=== PATIENT | male | born 1980 | race Caucasian/White ===

== ENCOUNTER 2017-11-05 15:30 | Emergency (ER) | payer OTHER ==
[2017-11-05] MEDS ORDERED: ZOFRAN ODT 4 MG PO ONE (16:18)
[2017-11-05] MEDS ORDERED: Naprosyn 500 MG PO ONE (16:18)
--- NOTE | 2017-11-05 16:25 | ERPHSYRPT ---
- History of Present Illness Time Seen by Provider: 11/05/17 16:11 Source: patient, family Patient Subjective Stated Complaint: PT REPORTS GENERALIZED BODY ACHES, FEVER LAST NIGHT 101.8, CHILLS, COUGH, VOMITING FOR 3 DAYS. Triage Nursing Assessment: PT IS AOX3, PUPILS PERRL, RESPS EASY AND NON LABORED , LUNG SOUNDS CLEAR THROUGHOUT ALL CARMICHAEL, PT AFEBRILE, RADIAL PULSES STRONG AND EQUAL, SKIN FLUSHED, WARM AND DRY. 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 He has mylagias, nausea, come vomiting and diarrhea, cough at night, headache. No sore throat. He has fever and chills. Taking po at home. Used APAP. Allergic to asa but can take naproxen. Cough Quality/Degree: moderate Allergies/Adverse Reactions: venom-honey bee [bee venom (honey bee)] Allergy (Severe, Verified 11/05/17 15:46 ) Hives aspirin Adverse Reaction (Severe, Verified 11/05/17 15:46) Vomiting morphine Adverse Reaction (Severe, Verified 11/05/17 15:46) Vomiting Home Medications: Venlafaxine HCl [Effexor Xr] 75 mg PO DAILY 01/29/16 [History] Hx Tetanus, Diphtheria Vaccination/Date Given: Yes Hx Influenza Vaccination/Date Given: No Hx Pneumococcal Vaccination/Date Given: No Immunizations Up to Date: Yes - Review of Systems Constitutional: Fever, Chills, Malaise Eyes: No Symptoms Ears, Nose, & Throat: Nose Congestion, No Throat Pain Respiratory: Cough Abdominal/Gastrointestinal: Vomiting, Diarrhea Genitourinary Symptoms: No Dysuria Skin: No Rash Neurological: Headache All Other Systems: Reviewed and Negative - Past Medical History Pertinent Past Medical History: Yes Psycho-Social History: Anxiety, Depression - Past Surgical History Past Surgical History: Yes Gastrointestinal: Appendectomy - Social History Smoking Status: Current every day smoker How long have you smoked: 22 Exposure to second hand smoke: No Drug Use: none 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) - Nursing Vital Signs Nursing Vital Signs: Initial Vital Signs Temperature 98.6 F 11/05/17 15:39 Pulse Rate 78 11/05/17 15:39 Respiratory Rate 18 11/05/17 15:39 Blood Pressure 139/80 11/05/17 15:39 O2 Sat by Pulse Oximetry 98 11/05/17 15:39 Pain Scale Pain Intensity 8 - Physical Exam General Appearance: alert Eye Exam: PERRL/EOMI Ears, Nose, Throat Exam: normal ENT inspection, moist mucous membranes Neck Exam: normal inspection, non-tender, supple, No meningismus Respiratory Exam: normal breath sounds, lungs clear Cardiovascular Exam: regular rate/rhythm Gastrointestinal/Abdomen Exam: soft, No tenderness, No distention Male Genitalia Exam: normal genitalia Back Exam: normal inspection, normal range of motion, No CVA tenderness Extremity Exam: normal inspection, normal range of motion Neurologic Exam: alert, oriented x 3, cooperative, sensation nml, No motor deficits Skin Exam: warm, dry, No rash SpO2 Interpretation: normal SpO2: 98 Oxygen Delivery: Room Air - Course Nursing assessment & vital signs reviewed: Yes Ordered Tests: Medication Summary Discontinued Medications Generic Name Dose Route Start Last Admin Trade Name Freq PRN Reason Stop Dose Admin Naproxen 500 mg 11/05/17 16:18 Naprosyn 500 Mg PO 11/05/17 16:19 STAT ONE Ondansetron HCl 4 mg 11/05/17 16:18 Zofran Odt 4 Mg PO 11/05/17 16:19 STAT ONE - Progress Progress Note: 11/05/17 16:23 Flu symptoms longer than 3 days so tamiflu unlikely to benefit. Will use naproxen, alb MDI, zofran, push fluids. Work slip given. No clinical sign of pneumonia nor meningitis. Instr given. Counseled pt/family regarding: diagnosis, need for follow-up - Departure Time of Disposition: 16:24 Departure Disposition: Home Clinical Impression: Influenza-like syndrome Condition: Stable Critical Care Time: No Referrals: SHIRA HOPKINS VEHICLE RETURN ASSOCIATE [NON-STAFF PHY W/O PRIVILEGES] - Instructions: Cough -- Adult, Influenza -- Adult Additional Instructions: UPPER RESPIRATORY INFECTIONS 1. The signs and symptoms of a cold may last up to 10 days. These illnesses are due to viruses which are not treatable with antibiotics. 2. The following suggestions can aid in recovery and to minimize symptoms: A. Increase fluid intake. B. Acetaminophen or Naproxen as directed. C. Avoid smoking environments as this will increase the risk of developing pneumonia. D. For children, may use a cool mist vaporizer in the child's room. 3. Contact your Family Physician if you note: A. Persisten fever >103 for more than 3 days B. Breathing difficulty C. Productive cough of yellow/green sputum D. Illness greater than 7 days E. Persistent vomiting F. Stiff neck Rx zofran sent to [facility]. Rx albuterol MDI sent to [facility]. Push oral fluids. Off work until fever free for 24 hours. Return for problems or concerns. Prescriptions: Ondansetron ODT 4 MG [Zofran Odt 4 mg] 1 tab PO Q6H PRN PRN #10 tab.rapdis PRN Reason: Nausea/Vomiting Albuterol Sulfate [Albuterol Sulfate Hfa] 2 puff IH Q4-6HPRN PRN #1 [id number] PRN Reason: cough or wheeze
[2017-11-05] MEDS ORDERED: ZOFRAN ODT 4 MG ONE (16:28)
[2017-11-05 17:44] VITALS: BP 149/82; PULSE 73; O2SAT 97
== END 2017-11-05 17:44 | disposition home or self-care (01) ==
LOC: ED 15:30
DX: J11.1 Influenza due to unidentified influenza virus with other respiratory manifestations (principal); R51 Headache
CPT/HCPCS: 99284; Q0162; A9270-GY

== ENCOUNTER 2018-12-09 23:05 | Emergency (ER) | payer MEDICAID, OTHER ==
[2018-12-09 23:20] VITALS: BP 141/91; PULSE 76; O2SAT 97
--- NOTE | 2018-12-09 23:23 | ERPHSYRPT ---
- History of Present Illness Time Seen by Provider: 12/09/18 23:22 Source: patient Exam Limitations: no limitations Patient Subjective Stated Complaint: pt is alert and oriented. pt is ambulatory. pt comes in with c/o pain to his left shoulder. pt states he does not remember an injury and has never injured his shoulder. no obvious deformity. pt has full rom but prefers not to move it due to pain. no bruising or redness. no obvious trauma. Triage Nursing Assessment: see above Physician History: 38 y/o right handed white male presents with left shoulder pain. no specific injury. never had this before. no cp and no soa Occurred: this morning Method of Injury: unknown Quality: aching Severity of Pain-Max: moderate Severity of Pain-Current: moderate Extremities Pain Location: shoulder: left Modifying Factors: Improves With: movement Associated Symptoms: No chest discomfort, No dyspnea, No short of breath Allergies/Adverse Reactions: venom-honey bee [bee venom (honey bee)] Allergy (Severe, Verified 11/05/17 15:46 ) Hives aspirin Adverse Reaction (Severe, Verified 11/05/17 15:46) Vomiting morphine Adverse Reaction (Severe, Verified 11/05/17 15:46) Vomiting Home Medications: Venlafaxine HCl [Venlafaxine HCl ER] 75 mg PO DAILY 12/09/18 [History] Hx Tetanus, Diphtheria Vaccination/Date Given: Yes Hx Influenza Vaccination/Date Given: No Hx Pneumococcal Vaccination/Date Given: No Immunizations Up to Date: Yes - Review of Systems Constitutional: No Symptoms Eyes: No Symptoms Ears, Nose, & Throat: No Symptoms Respiratory: No Symptoms Cardiac: No Symptoms Abdominal/Gastrointestinal: No Symptoms Genitourinary Symptoms: No Symptoms Musculoskeletal: Joint Pain (left shoulder) Skin: No Symptoms Neurological: No Symptoms Psychological: No Symptoms Endocrine: No Symptoms Hematologic/Lymphatic: No Symptoms Immunological/Allergic: No Symptoms All Other Systems: Reviewed and Negative - Past Medical History Pertinent Past Medical History: Yes Neurological History: No Pertinent History ENT History: No Pertinent History Cardiac History: No Pertinent History Respiratory History: No Pertinent History Endocrine Medical History: No Pertinent History Musculoskeletal History: No Pertinent History GI Medical History: Other History: No Pertinent History Psycho-Social History: No Pertinent History Male Reproductive Disorders: No Pertinent History Other Medical History: appendix removal with sepsis and partial removal of bladder. 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 Vital Signs Nursing Vital Signs: Initial Vital Signs Pulse Rate 76 12/09/18 23:13 Respiratory Rate 18 12/09/18 23:13 Blood Pressure 141/91 12/09/18 23:13 O2 Sat by Pulse Oximetry 97 12/09/18 23:13 Pain Scale Pain Intensity 9 - Physical Exam General Appearance: no apparent distress, alert, anxiety Eyes, Ears, Nose, Throat Exam: normal ENT inspection, moist mucous membranes Neck Exam: normal inspection, non-tender, supple, full range of motion Cardiovascular/Respiratory Exam: chest non-tender, normal breath sounds, regular rate/rhythm, heart sounds normal Abdominal Exam: non-tender, soft Back Exam: normal inspection, normal range of motion, No CVA tenderness, No vertebral tenderness Shoulder Exam: normal inspection, no evidence of injury, normal ROM, soft tissue tenderness Elbow/Forearm Exam: normal inspection, non-tender, no evidence of injury, normal ROM Wrist Exam: normal inspection, non-tender, no evidence of injury, normal ROM Hand Exam: normal inspection, non-tender, no evidence of injury, normal ROM Neuro/Tendon Exam: normal sensation, normal motor functions Mental Status Exam: alert, oriented x 3, cooperative Skin Exam: normal color, warm, dry SpO2 Interpretation: normal SpO2: 97 O2 Delivery: Room Air - Course Nursing assessment & vital signs reviewed: Yes - Progress Progress: unchanged Progress Note: 12/09/18 23:36 i offered pt a xray left shoulder. pt does not feel one is necessary and therefore declines. Counseled pt/family regarding: diagnosis, need for follow-up, rad results - Departure Time of Disposition: 23:37 Departure Disposition: Home Clinical Impression: Left shoulder strain Condition: Stable Critical Care Time: No Referrals: SHIRA HOPKINS, [employer] [facility] [Primary Care Provider] - Additional Instructions: follow up with primary doctor next week for further management. Prescriptions: Cyclobenzaprine HCl 10 mg [Cyclobenzaprine 10 MG] 10 mg PO TID #10 tablet Prednisone 10 mg [Deltasone 10 mg] 10 mg PO TID #12 tablet
[2018-12-09] MEDS ORDERED: Cyclobenzaprine 10 MG PO ONE (23:48)
[2018-12-09] MEDS ORDERED: PERCOCET TABLET 5/325MG PO STA (23:49)
[2018-12-09] MEDS ORDERED: DELTASONE 10 MG PO ONE (23:49)
[2018-12-09] MEDS ORDERED: Cyclobenzaprine 10 MG ONE (23:58)
[2018-12-09] MEDS ORDERED: PERCOCET TABLET 5/325MG ONE (23:58)
[2018-12-09] MEDS ORDERED: DELTASONE 20 MG ONE (23:59)
== END 2018-12-10 00:02 | disposition home or self-care (01) ==
LOC: ED 23:05
DX: S46.912A Strain of unspecified muscle, fascia and tendon at shoulder and upper arm level, left arm, initial encounter (principal); M25.512 Pain in left shoulder
CPT/HCPCS: 99283; A9270-GY

== ENCOUNTER 2019-12-17 09:31 | Emergency (ER) | payer OTHER ==
[2019-12-17 09:52] VITALS: BP 130/80; PULSE 87; O2SAT 96
--- NOTE | 2019-12-17 10:40 | ERPHSYRPT ---
- History of Present Illness Time Seen by Provider: 12/17/19 09:50 Source: patient Exam Limitations: no limitations Patient Subjective Stated Complaint: "I was exposed to a TB patient in the ambulance". Triage Nursing Assessment: Pt presents to ER with crew from [facility] for exposure from TB patient. Pt is alert and oriented x 3. Asymptomatic at this time. Resp easy. Denies nausea/vomiting/diarrhea. Denies fever, body aches, chills, rash, ect. 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 Of shortness of breath cough or fevers. Timing/Duration: today Modifying Factors: Improves With: nothing Associated Symptoms: denies symptoms Allergies/Adverse Reactions: venom-honey bee [bee venom (honey bee)] Allergy (Severe, Verified 12/17/19 09:52 ) Hives aspirin Adverse Reaction (Severe, Verified 12/17/19 09:52) Vomiting morphine Adverse Reaction (Severe, Verified 12/17/19 09:52) Vomiting Home Medications: Venlafaxine HCl [Venlafaxine HCl ER] 75 mg PO DAILY 12/09/18 [History] Hx Tetanus, Diphtheria Vaccination/Date Given: Yes Hx Influenza Vaccination/Date Given: Yes Hx Pneumococcal Vaccination/Date Given: No Immunizations Up to Date: Yes - Review of Systems Constitutional: No Symptoms Eyes: No Symptoms Ears, Nose, & Throat: No Symptoms Respiratory: No Symptoms Cardiac: No Symptoms Abdominal/Gastrointestinal: No Symptoms Genitourinary Symptoms: No Symptoms Musculoskeletal: No Symptoms Skin: No Symptoms Neurological: No Symptoms Psychological: No Symptoms Endocrine: No Symptoms Hematologic/Lymphatic: No Symptoms Immunological/Allergic: No Symptoms All Other Systems: Reviewed and Negative - Past Medical History Pertinent Past Medical History: Yes Neurological History: No Pertinent History ENT History: No Pertinent History Cardiac History: High Cholesterol Respiratory History: No Pertinent History Endocrine Medical History: No Pertinent History Musculoskeletal History: No Pertinent History GI Medical History: Other History: No Pertinent History Psycho-Social History: No Pertinent History Male Reproductive Disorders: No Pertinent History Other Medical History: appendix removal with sepsis and partial removal of bladder. 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 - Social History Smoking Status: Current every day smoker How long have you smoked: 15 years Exposure to second hand smoke: No Drug Use: none Patient Lives Alone: Yes - Nursing Vital Signs Nursing Vital Signs: Initial Vital Signs Temperature 98.1 F 12/17/19 09:47 Pulse Rate 87 12/17/19 09:47 Respiratory Rate 18 12/17/19 09:47 Blood Pressure 130/80 12/17/19 09:47 O2 Sat by Pulse Oximetry 96 12/17/19 09:47 Pain Scale Pain Intensity 0 - Physical Exam General Appearance: no apparent distress, alert Eye Exam: PERRL/EOMI, eyes nml inspection Ears, Nose, Throat Exam: normal ENT inspection, moist mucous membranes Neck Exam: normal inspection, non-tender, supple, full range of motion Respiratory Exam: normal breath sounds, lungs clear, airway intact, No chest tenderness, No respiratory distress Rectal Exam: No not done Back Exam: normal inspection, normal range of motion, No CVA tenderness, No vertebral tenderness Extremity Exam: normal inspection, normal range of motion, pelvis stable Neurologic Exam: alert, oriented x 3, cooperative, 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 Flynn, the emergency room department physician at [facility], was contacted by me. I discussed the correction patient who presumed to have active TB. He evaluated that patient this morning and repeated the chest x-ray. He also found out that the patient had a negative PPD in the recent past. Dr. Flynn stated that he is confident that this patient does not have active TB. No further work-up for Manjinder Dominguez will be performed. Counseled pt/family regarding: diagnosis, need for follow-up - Departure Departure Disposition: Home Clinical Impression: Encounter for medical screening examination Condition: Stable Critical Care Time: No Referrals: CONNIE-ELIAN,SHIRA E., TOP AND TRIM WORKER [Primary Care Provider] - Additional Instructions: Follow-up with your primary care physician as needed
== END 2019-12-17 10:30 | disposition home or self-care (01) ==
LOC: ED 09:31
DX: Z03.89 Encounter for observation for other suspected diseases and conditions ruled out (principal)
CPT/HCPCS: 99283

== ENCOUNTER 2020-03-25 20:56 | Emergency (ER) | payer MEDICAID, OTHER ==
--- NOTE | 2020-03-25 21:15 | ERPHSYRPT ---
- History of Present Illness Time Seen by Provider: 03/25/20 21:10 Source: patient Exam Limitations: no limitations Physician History: This is a 39-year-old white male who presents with right cheek and right dental pain. Patient has chronic dental pain and chronic dental infection issues. Today, he accidentally was hit in the maxillary area on the right. This brought on significant dental pain. Patient originally had dental appointment at the end of December. However with the COVID-19 infection his appointment was canceled. He has not yet re-scheduled. Timing/Duration: abrupt onset Severity: moderate ENT Location: facial, dental Prearrival Treatment: over the counter meds (Plain Tylenol) Allergies/Adverse Reactions: venom-honey bee [bee venom (honey bee)] Allergy (Severe, Verified 03/25/20 21:01 ) Hives aspirin Adverse Reaction (Severe, Verified 03/25/20 21:01) Vomiting morphine Adverse Reaction (Severe, Verified 03/25/20 21:01) Vomiting Home Medications: Venlafaxine HCl [Venlafaxine HCl ER] 75 mg PO DAILY 12/09/18 [History] Hx Tetanus, Diphtheria Vaccination/Date Given: Yes Hx Influenza Vaccination/Date Given: Yes Hx Pneumococcal Vaccination/Date Given: No Travel Risk - International Travel Have you traveled outside of the country in past 3 weeks: No Have you or anyone close to you been diagnosed with or: No Do your reside in a community with a known COVID-19 case?: Yes If Yes where:: [facility] - Review of Systems Constitutional: No Symptoms Eyes: No Symptoms Ears, Nose, & Throat: Other (Right upper dental pain) Respiratory: No Symptoms Cardiac: No Symptoms Abdominal/Gastrointestinal: No Symptoms Genitourinary Symptoms: No Symptoms Musculoskeletal: No Symptoms Skin: No Symptoms Neurological: No Symptoms Psychological: No Symptoms Endocrine: No Symptoms Hematologic/Lymphatic: No Symptoms Immunological/Allergic: No Symptoms All Other Systems: Reviewed and Negative - Past Medical History Pertinent Past Medical History: Yes Neurological History: No Pertinent History ENT History: No Pertinent History Cardiac History: High Cholesterol Respiratory History: No Pertinent History Endocrine Medical History: No Pertinent History Musculoskeletal History: No Pertinent History GI Medical History: Other History: No Pertinent History Psycho-Social History: No Pertinent History Male Reproductive Disorders: No Pertinent History Other Medical History: appendix removal with sepsis and partial removal of bladder. 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 - Social History Smoking Status: Current every day smoker How long have you smoked: 15 years Exposure to second hand smoke: No Drug Use: none Patient Lives Alone: Yes - Nursing Vital Signs Nursing Vital Signs: Initial Vital Signs Temperature 98.3 F 03/25/20 21:02 Pulse Rate 96 H 03/25/20 21:02 Respiratory Rate 15 03/25/20 21:02 Blood Pressure 131/94 03/25/20 21:02 O2 Sat by Pulse Oximetry 97 03/25/20 21:02 Pain Scale Pain Intensity 10 - Physical Exam General Appearance: no apparent distress, alert, anxiety Eye Exam: bilateral eye: normal inspection, PERRL, EOMI Ear Exam: bilateral ear: auricle normal, canal normal, TM normal Nasal Exam: normal inspection Throat Exam: dental tenderness (Right upper molars, patient has generalized poor dentition) Neck Exam: normal inspection, non-tender, supple, full range of motion Cardiovascular/Respiratory Exam: chest non-tender Abdominal Exam: non-tender Neurologic Exam: alert, oriented x 3, cooperative, 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 Patient states he does have a ride home Counseled pt/family regarding: diagnosis, need for follow-up - Departure Departure Disposition: Home Clinical Impression: Pain, dental Condition: Stable Critical Care Time: No Referrals: SHIRA HOPKINS, [employer] DE[employer]ERIFF [Primary Care Provider] - Additional Instructions: Follow-up tomorrow with dentist to arrange an appointment for definitive care. Add ibuprofen 600 mg orally (if not allergic) with food 3 times a day Prescriptions: Hydrocodone/APAP 5-325 Tab^^^ [Ridgeway 5-325 Tablet^^^] 1 tab PO Q8H PRN PRN #6 tablet MDD 3 PRN Reason: Pain Cephalexin Mh 500 mg [Keflex 500 mg] 500 mg PO TID #21 capsule
[2020-03-25] MEDS ORDERED: Norco 10/325 MG Tablet PO ONE (21:43)
[2020-03-25] MEDS ORDERED: KEFLEX 250 MG PO ONE (21:44)
[2020-03-25] MEDS ORDERED: KEFLEX 250 MG ONE (22:17)
[2020-03-25] MEDS ORDERED: Norco 10/325 MG Tablet ONE (22:17)
[2020-03-25 22:26] VITALS: BP 126/85; PULSE 92; O2SAT 98
== END 2020-03-25 22:26 | disposition home or self-care (01) ==
LOC: ED 20:56
DX: K08.89 Other specified disorders of teeth and supporting structures (principal); W22.8XXA Striking against or struck by other objects, initial encounter; Y93.9 Activity, unspecified; Y92.9 Unspecified place or not applicable; G89.29 Other chronic pain; F45.42 Pain disorder with related psychological factors
CPT/HCPCS: 99283; A9270-GY

== ENCOUNTER 2020-10-22 21:17 | Emergency (ER) | payer SELFPAY ==
[2020-10-22] MEDS ORDERED: XYLOCAINE 1% HCL 20 ML MDV IJ ONE (21:18)
[2020-10-22 21:41] VITALS: O2SAT 98
[2020-10-22] MEDS ORDERED: Rocephin 1000 MG INJ ONE (21:47)
[2020-10-22] MEDS ORDERED: Rocephin 1000 MG INJ IM ONE (21:47)
--- NOTE | 2020-10-22 21:47 | ERPHSYRPT ---
- History of Present Illness Time Seen by Provider: 10/22/20 21:40 Source: patient Exam Limitations: no limitations Patient Subjective Stated Complaint: pt states that "I have had a toothache for the past 2 days." Triage Nursing Assessment: pt ambulated into the er; pt is axo x4; c/o toothache; states 10/pain to upper left mouth; multiple tooth decay present; upper gum is red and swollen; mucus membrane is pink and moist; lung sounds clear in all lobes; clear heart tones; vitals wnl Physician History: This is a 39-year-old white male who has generalized poor dentition who has 2- day history of tooth ache. It is specifically the left upper front tooth. Timing/Duration: gradual onset, days (2) Severity: moderate ENT Location: dental Prearrival Treatment: over the counter meds Associated Symptoms: tooth pain Allergies/Adverse Reactions: venom-honey bee [bee venom (honey bee)] Allergy (Severe, Verified 10/22/20 21:21) Hives aspirin Adverse Reaction (Severe, Verified 10/22/20 21:21) Vomiting morphine Adverse Reaction (Severe, Verified 10/22/20 21:21) Vomiting Hx Tetanus, Diphtheria Vaccination/Date Given: Yes Hx Influenza Vaccination/Date Given: No Hx Pneumococcal Vaccination/Date Given: No Travel Risk - International Travel Have you traveled outside of the country in past 3 weeks: No - Coronavirus Screening Are you exhibiting any of the following symptoms?: No Close contact with a COVID-19 positive Pt in past 14-21 Days: Yes - Review of Systems Constitutional: No Symptoms Eyes: No Symptoms Ears, Nose, & Throat: Other (Dental pain/infection) Respiratory: No Symptoms Cardiac: No Symptoms Abdominal/Gastrointestinal: No Symptoms Genitourinary Symptoms: No Symptoms Musculoskeletal: No Symptoms Skin: No Symptoms Neurological: No Symptoms Psychological: No Symptoms Endocrine: No Symptoms Hematologic/Lymphatic: No Symptoms Immunological/Allergic: No Symptoms All Other Systems: Reviewed and Negative - Past Medical History Pertinent Past Medical History: Yes Neurological History: No Pertinent History ENT History: No Pertinent History Cardiac History: High Cholesterol Respiratory History: No Pertinent History Endocrine Medical History: No Pertinent History Musculoskeletal History: No Pertinent History GI Medical History: Other History: No Pertinent History Psycho-Social History: No Pertinent History Male Reproductive Disorders: No Pertinent History Other Medical History: appendix removal with sepsis and partial removal of bladder. 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 - Social History Smoking Status: Current every day smoker How long have you smoked: 15 years Exposure to second hand smoke: No Drug Use: none Patient Lives Alone: Yes - Nursing Vital Signs Nursing Vital Signs: Initial Vital Signs Temperature 99.2 F 10/22/20 21:22 Pulse Rate 78 10/22/20 21:22 Respiratory Rate 16 10/22/20 21:22 Blood Pressure 130/87 10/22/20 21:22 O2 Sat by Pulse Oximetry 98 10/22/20 21:22 Pain Scale Pain Intensity 10 - Physical Exam General Appearance: no apparent distress, alert, anxiety Eye Exam: bilateral eye: normal inspection, PERRL, EOMI Ear Exam: bilateral ear: auricle normal Nasal Exam: normal inspection Throat Exam: dental tenderness Neck Exam: normal inspection, non-tender, supple, full range of motion, trachea midline Cardiovascular/Respiratory Exam: chest non-tender, no respiratory distress Abdominal Exam: non-tender Neurologic Exam: alert, oriented x 3, cooperative, 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, nor mal mood/affect, nml cerebellar function, nml station & gait, sensation nml Skin Exam: normal color, warm, dry SpO2 Interpretation: normal SpO2: 98 O2 Delivery: Room Air - Course Nursing assessment & vital signs reviewed: Yes Ordered Tests: Medication Summary Generic Name Dose Route Start Last Admin Trade Name Willianq PRN Reason Stop Dose Admin Ceftriaxone Sodium 1,000 mg 10/22/20 21:47 Rocephin 1000 Mg Inj IM 10/22/20 21:48 STAT ONE - Progress Progress: unchanged Counseled pt/family regarding: diagnosis, need for follow-up - Departure Departure Disposition: Home Clinical Impression: Pain, dental, Dental infection Condition: Stable Critical Care Time: Yes Referrals: SHIRA HOPKINS, EP TECH [Primary Care Provider] - Additional Instructions: Take medication as prescribed. Use Tylenol and ibuprofen for pain control. Follow-up with dentist for definitive care. Prescriptions: Cephalexin Mh 500 mg [Keflex 500 mg] 500 mg PO TID #21 capsule
[2020-10-22] MEDS ORDERED: Norco 10/325 MG Tablet PO ONE (21:54)
[2020-10-22] MEDS ORDERED: Norco 10/325 MG Tablet ONE (21:55)
[2020-10-22 22:11] VITALS: BP 117/84; PULSE 69
== END 2020-10-22 22:08 | disposition home or self-care (01) ==
LOC: ED 21:17
DX: K04.7 Periapical abscess without sinus (principal)
CPT/HCPCS: 96372; 99283; J0696; A9270-GY

== ENCOUNTER 2024-08-01 17:24 | Observation (INO) | payer BC ==
--- NOTE | 2024-08-01 17:35 | ERPHSYRPT ---
- History of Present Illness Time Seen by Provider: 08/01/24 17:35 Historian: patient, family Exam Limitations: no limitations Physician History: This is a 43-year-old white male patient who presents with bilateral lower quadrant infraumbilical abdominal pain with associated diarrhea but no nausea or vomiting symptoms. Patient has had an appendectomy in the past. He also has a history of hyperlipidemia. At approximately 8 AM this morning, the patient noticed the pain coming on it became quite severe. It was severe enough for him to take Tylenol and ibuprofen which did not relieve his symptoms. Throughout the day the pain worsened. The pain is now radiating into his back. Patient denies chest pain. Patient denies shortness of breath. Timing/Duration: today Quality: sharpness, stabbing Abdominal Pain Onset Location: RLQ, LLQ Pain Radiation: back Severity of Pain-Max: moderate Severity of Pain-Current: moderate Modifying Factors: Improves With: nothing Associated Symptoms: diarrhea Previous symptoms: no prior history Allergies/Adverse Reactions: venom-honey bee [bee venom (honey bee)] Allergy (Severe, Verified 08/01/24 17:40) Hives aspirin Adverse Reaction (Severe, Verified 08/01/24 17:40) Vomiting morphine Adverse Reaction (Severe, Verified 08/01/24 17:40) Vomiting Home Medications: Atorvastatin Calcium [Lipitor] 10 mg PO DAILY 08/01/24 [History] Fenofibrate,Micronized 145 mg* [Tricor 145 MG] 145 mg PO DAILY 08/01/24 [History] Venlafaxine HCl ER 75 mg [Effexor XR 75 MG] 75 mg PO DAILY 08/01/24 [History] icosapent ethyL [Vascepa] 1 gm PO BID 08/01/24 [History] Hx Tetanus, Diphtheria Vaccination/Date Given: Yes Hx Influenza Vaccination/Date Given: No Hx Pneumococcal Vaccination/Date Given: No Travel Risk - International Travel Have you traveled outside of the country in past 3 weeks: No - Emerging Infectious Disease Are you exhibiting symptoms associated with any current EIDs: No - Review of Systems Constitutional: No Symptoms Eyes: No Symptoms Ears, Nose, & Throat: No Symptoms Respiratory: No Symptoms Cardiac: No Symptoms Abdominal/Gastrointestinal: Abdominal Pain, Diarrhea, Appetite Changes Genitourinary Symptoms: No Symptoms Musculoskeletal: No Symptoms Skin: No Symptoms Neurological: No Symptoms Psychological: No Symptoms Endocrine: No Symptoms Hematologic/Lymphatic: No Symptoms Immunological/Allergic: No Symptoms All Other Systems: Reviewed and Negative - Past Medical History Pertinent Past Medical History: Yes Neurological History: No Pertinent History ENT History: No Pertinent History Cardiac History: High Cholesterol Respiratory History: No Pertinent History Endocrine Medical History: No Pertinent History Musculoskeletal History: No Pertinent History GI Medical History: Other History: No Pertinent History Psycho-Social History: No Pertinent History Male Reproductive Disorders: No Pertinent History Other Medical History: appendix removal with sepsis and partial removal of bladder. 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 - Social History Smoking Status: Current every day smoker How long have you smoked: 15 years Exposure to second hand smoke: No Drug Use: none Patient Lives Alone: Yes - Nursing Vital Signs Nursing Vital Signs: Initial Vital Signs Temperature 99.2 F 08/01/24 17:30 Pulse Rate 105 H 08/01/24 17:30 Blood Pressure 153/100 08/01/24 17:30 O2 Sat by Pulse Oximetry 100 08/01/24 17:30 Pain Scale Pain Intensity 6 - Physical Exam General Appearance: mild distress, alert, anxiety Eye Exam: PERRL/EOMI, eyes nml inspection Ears, Nose, Throat Exam: normal ENT inspection, moist mucous membranes Neck Exam: normal inspection, non-tender, supple, full range of motion Respiratory Exam: normal breath sounds, lungs clear, airway intact, No chest tenderness, No respiratory distress Cardiovascular Exam: tachycardia Gastrointestinal/Abdomen Exam: soft, normal bowel sounds, tenderness (Infraumbilical bilateral to palpation), guarding (Infraumbilical bilateral to palpation), rebound (Infraumbilical bilateral to palpation) Rectal Exam: not done Back Exam: normal inspection, normal range of motion, No CVA tenderness, No vertebral tenderness Extremity Exam: normal inspection, normal range of motion, pelvis stable Neurologic Exam: alert, oriented x 3, cooperative, 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, sensation nml Skin Exam: normal color, warm, dry Lymphatic Exam: No adenopathy SpO2 Interpretation: normal O2 Delivery: Room Air - Course Nursing assessment & vital signs reviewed: Yes Ordered Tests: Active Orders 24 hr Category Date Time Status IV Insertion STAT Care 08/01/24 17:49 Active ABDOMEN AND PELVIS W/0 CONTRAS [CT] Stat Exams 08/01/24 18:11 Taken AMYLASE Stat Lab 08/01/24 18:00 Completed CBC W DIFF Stat Lab 08/01/24 17:49 Completed CMP Stat Lab 08/01/24 18:00 Completed LIPASE Stat Lab 08/01/24 18:00 Completed UA W/RFX UR CULTURE Stat Lab 08/01/24 18:00 Completed Medication Summary Discontinued Medications Generic Name Dose Route Start Last Admin Trade Name Freq PRN Reason Stop Dose Admin Fentanyl Citrate 50 mcg 08/01/24 17:49 08/01/24 18:04 Fentanyl Citrate 100 Mcg/2 Ml* Vial IV 08/01/24 17:50 50 mcg STAT ONE Administration Fentanyl Citrate Confirm 08/01/24 18:01 Fentanyl Citrate 100 Mcg/2 Ml* Vial Administered 08/01/24 18:02 Dose 100 mcg .ROUTE .STK-MED ONE Hydromorphone HCl 1 mg 08/01/24 18:29 08/01/24 18:39 Hydromorphone 1 Mg/1ml Inj IV 08/01/24 18:30 1 mg STAT ONE Administration Hydromorphone HCl Confirm 08/01/24 18:37 Hydromorphone 1 Mg/1ml Inj Administered 08/01/24 18:38 Dose 1 mg .ROUTE .STK-MED ONE Sodium Chloride 1,000 mls @ 999 mls/hr 08/01/24 17:49 08/01/24 18:04 Sodium Chloride 0.9% 1000 Ml IV 08/01/24 18:49 999 mls/hr .Q1H1M STA Administration Sodium Chloride Confirm 08/01/24 18:02 Sodium Chloride 0.9% 1000 Ml Administered 08/01/24 18:03 Dose 1,000 mls @ ud .ROUTE .STK-MED ONE Ondansetron HCl 4 mg 08/01/24 17:49 08/01/24 18:04 Ondansetron Hcl 4 Mg/2 Ml Vial IV 08/01/24 17:50 4 mg STAT ONE Administration Ondansetron HCl Confirm 08/01/24 18:00 Ondansetron Hcl 4 Mg/2 Ml Vial Administered 08/01/24 18:01 Dose 4 mg .ROUTE .K-MED ONE Lab/Rad Data: Laboratory Result Diagrams 08/01/24 17:49 08/01/24 18:00 Laboratory Results 08/01/24 08/01/24 08/01/24 Range/Units 18:00 18:00 17:49 WBC 21.2 H (4.23-9.07) x10^3/uL RBC 5.15 (4.63-6.08) x10^6/uL Hgb 15.3 (13.7-17.5) g/dL Hct 45.1 (40.1-51.0) % MCV 87.6 (79.0-92.2) fL MCH 29.7 (25.7-32.2) pg MCHC 33.9 (32.3-36.5) g/dL RDW 12.4 (11.6-14.4) % Plt Count 498 H (163-337) x10^3/uL MPV 9.2 L (9.4-12.4) fL Gran % 79.0 H (34.0-67.9) % Immature Gran % (Auto) 0.5 H (0.001-0.429) % Nucleat RBC Rel Count 0.0 (0.00-0.2) % Eos # (Auto) 0.34 (0.04-0.54) x10^3/uL Immature Gran # (Auto) 0.10 H (0.001-0.031) x10^3u/L Absolute Lymphs (auto) 2.50 (1.32-3.57) x10^3/uL Absolute Monos (auto) 1.38 H (0.30-0.82) x10^3/uL Absolute Nucleated RBC 0.00 (0.00-0.012) x10^3u/L Lymphocytes % 11.8 L (21.8-53.1) % Monocytes % 6.5 (5.3-12.2) % Eosinophils % 1.6 (0.8-7.0) % Basophils % 0.6 (0.2-1.2) % Absolute Granulocytes 16.73 H (1.78-5.38) x10^3/uL Basophils # 0.12 H (0.01-0.08) x10^3/uL Sodium 141 (135-145) mmol/L Potassium 4.2 (3.5-5.1) mmol/L Chloride 103 (98-107) mmol/L Carbon Dioxide 28 (22-30) mmol/L Anion Gap 15.0 (5-15) MEQ/L BUN 13 (9-20) mg/dL Creatinine 1.30 H (0.66-1.25) mg/dL Estimated GFR 69.5 ML/MIN Glucose 133 H (74-106) mg/dL Calcium 10.2 (8.4-10.2) mg/dL Total Bilirubin 0.60 (0.2-1.3) mg/dL AST 27 (17-59) U/L ALT 22 (0-50) U/L Alkaline Phosphatase 70 (38-126) U/L Serum Total Protein 8.7 H (6.3-8.2) g/dL Albumin 5.0 (3.5-5.0) g/dL Amylase 115 H (30-110) U/L Lipase 168 (23-300) U/L Urine Color Yellow (Yellow) Urine Appearance Clear (Clear) Urine pH 7.5 (4.6-8.0) Ur Specific [place] 1.010 (1.005-1.030) Urine Protein Negative (Negative) Urine Glucose (UA) Negative (Negative) mg/dL Urine Ketones Negative (Negative) Urine Blood Negative (Negative) Urine Nitrite Negative (Negative) Urine Bilirubin Negative (Negative) Urine Urobilinogen 0.2 (0.2) mg/dL Ur Leukocyte Esterase Negative (Negative) U Hyaline Cast (Auto) NONE SEEN (0-2) /LPF Urine Microscopic RBC 0-2 (0-5) /HPF Urine Microscopic WBC 0-2 (0-5) /HPF Ur Epithelial Cells None Seen (None Seen) /HPF Urine Bacteria None Seen (None Seen) /HPF Urine Culture Reflexed NO (NO) - Progress Progress: improved, pain not gone completely Progress Note: 08/01/24 19:08 My medical decision making and the assignment of moderate complexity to this patient's medical issue today is based on review of the patient's past medical history, review of the patient's medication list, review the patient drug allergy list, history present illness and physical findings on examination. The workup in this patient includes placement of intravenous line, infusion Mermelstein solution, infusion of Zofran intravenously, infusion of fentanyl intravenously, CBC, CMP, amylase, lipase, urinalysis, CT scan of the abdomen pelvis without contrast. Differential diagnosis includes but is not limited to diverticulitis, perforated colon, pancreatitis, bowel obstruction 08/01/24 19:09 I am transferring care of this patient to Dr. Nelson at shift change. I have advised him of the patient's chief complaint, physical findings and pending workup studies that he will need to check up on. He will make final di sposition. Medical Desision Making - Independent Historian Additional History obtained from: Relative/friend - Departure Departure Disposition: Home Clinical Impression: Abdominal pain Condition: Stable Critical Care Time: No Referrals: LAURIE GUNDERSON NP [Primary Care Provider] - Follow up/PCP as directed
[2024-08-01] MEDS ORDERED: Zofran 4 MG/2 ML VIAL ONE (18:00)
[2024-08-01] MEDS ORDERED: SUBLIMAZE 100 MCG/2 ML ONE (18:01)
[2024-08-01] MEDS ORDERED: Sodium Chloride 0.9% 1000 ML 1,000 ML ONE (18:02)
[2024-08-01 18:03] LABS: Absolute Neutrophil Ct (ANC) 16.73 x10^3/uL (1.78-5.38); BASOPHIL % 0.6 % (0.2-1.2); Basophil (Absolute #) 0.12 x10^3/uL (0.01-0.08); Eosinophil % 1.6 % (0.8-7.0); Eosinophil (Absolute #) 0.34 x10^3/uL (0.04-0.54); Hematocrit 45.1 % (40.1-51.0); Hemoglobin 15.3 g/dL (13.7-17.5); IMMATURE GRAN % 0.5 % (0.001-0.429); Lymphocytes % 11.8 % (21.8-53.1); Mean Cell Volume 87.6 fL (79.0-92.2); Mean Corpuscular Hemoglobin 29.7 pg (25.7-32.2); Mean Corpuscular Hgb Concent. 33.9 g/dL (32.3-36.5); Mean Platelet Volume 9.2 fL (9.4-12.4); Monocyte (Absolute #) 1.38 x10^3/uL (0.30-0.82); Monocytes % 6.5 % (5.3-12.2); Platelet Count 498 x10^3/uL (163-337); Red Blood Count 5.15 x10^6/uL (4.63-6.08); Red Cell Distribution Width 12.4 % (11.6-14.4); White Blood Count 21.2 x10^3/uL (4.23-9.07)
[2024-08-01] MEDS: Sodium Chloride 0.9% 1000 ML 1,000 ML IV STA (18:04)
[2024-08-01] MEDS: Zofran 4 MG/2 ML VIAL IV ONE (18:04)
[2024-08-01] MEDS: SUBLIMAZE 100 MCG/2 ML IV ONE (18:04)
[2024-08-01 18:13] LABS: Appearance Clear (Clear); Bacteria None Seen /HPF (None Seen); Bilirubin Negative (Negative); Blood Negative (Negative); Epithelial Cells None Seen /HPF (None Seen); Glucose, Urine Negative (Negative); Hyaline Casts NONE SEEN /LPF (0-2); Ketones Negative (Negative); Leukocyte Esterase Negative (Negative); Nitrite Negative (Negative); Ph 7.5 (4.6-8.0); Protein,Urine Dip Negative (Negative); RBC 0-2 /HPF (0-5); Urobilinogen 0.2 mg/dL (0.2); WBC 0-2 /HPF (0-5)
[2024-08-01 18:19] LABS: BILIRUBIN,TOTAL 0.6 mg/dL (0.2-1.3); Calcium 10.2 mg/dL (8.4-10.2); Creatinine 1 1.3 mg/dL (0.66-1.25); EST GLOMERULAR FILTRATION RATE 69.5 ML/MIN; Potassium 4.2 mmol/L (3.5-5.1); Total Protein 8.7 g/dL (6.3-8.2)
[2024-08-01] MEDS ORDERED: Hydromorphone 1 mg/ml Injection ONE ×2 (18:37→20:00)
[2024-08-01] MEDS: Hydromorphone 1 mg/ml Injection IV ONE ×2 (18:39→20:07)
[2024-08-01] MEDS ORDERED: FLAGYL 500 MG IVPB 500 MG/100 ML BAG IV ONE (20:02)
[2024-08-01] MEDS ORDERED: Levofloxacin 500MG/100ML D5W 500 MG/100 ML BAG IV ONE (20:02)
[2024-08-01] MEDS: FLAGYL 500 MG IVPB 500 MG/100 ML BAG IV STA (20:08)
[2024-08-01] MEDS: Levofloxacin 500MG/100ML D5W 500 MG/100 ML BAG IV STA (20:08)
--- NOTE | 2024-08-01 22:19 | PCM.HP ---
History of Present Illness - Chief Complaint Chief Complaint: Sigmoid diverticulitis, leukocytosis elevated serum creatinine, thrombocyto Date: 08/01/24 History of Present Illness: 43 years old very pleasant male with no significant past medical history except hyperlipidemia came to ER complaining of new onset of lower abdominal and that started this morning it was severe around 8 x 10 nonradiating associated with nausea but no vomiting. He denied having any fever. He did not having any prior history of colitis. He did complain of some diarrhea without bloody stool. The initial blood pressure was 150/100 pulse rate 105 temperature 99.2. As well as blood workup concern white cell count 21 point hemoglobin 10.3 platelets 198. Sodium 140 potassium 4 point chloride 103 bicarb 20 BUN [address] abdomen pelvis showed uncomplicated sigmoid able to lightest. Patient admitted for further care - Review of Systems All Other Systems: Reviewed and Negative Medications & Allergies Home Medications: Home Medication List Atorvastatin Calcium [Lipitor] 10 mg PO DAILY 08/01/24 [History Confirmed 08/01/24] Fenofibrate,Micronized 145 mg* [Tricor 145 MG] 145 mg PO DAILY 08/01/24 [History Confirmed 08/01/24] Venlafaxine HCl ER 75 mg [Effexor XR 75 MG] 75 mg PO DAILY 08/01/24 [History Confirmed 08/01/24] icosapent ethyL [Vascepa] 1 gm PO BID 08/01/24 [History Confirmed 08/01/24] Allergies/Adverse Reactions: Allergies Allergy/AdvReac Type Severity Reaction Status Date / Time venom-honey bee Allergy Severe Hives Verified 08/01/24 17:40 [bee venom (honey bee)] aspirin AdvReac Severe Vomiting Verified 08/01/24 17:40 morphine AdvReac Severe Vomiting Verified 08/01/24 17:40 - Past Medical History Past Medical History: Yes Neurological History: No Pertinent History ENT History: No Pertinent History Cardiac History: High Cholesterol Respiratory History: No Pertinent History Endocrine Medical History: No Pertinent History Musculoskelatal History: No Pertinent History GI Medical History: Other History: No Pertinent History Pyscho-Social History: No Pertinent History Male Reproductive Disorders: No Pertinent History Comment: appendix removal with sepsis and partial removal of bladder. 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 Significant Family History: no pertinent family hx - Social History Smoking Status: Current some day smoker How long have you smoked: 15 years Exposure to second hand smoke: No Alcohol: Rarely Drug Use: none - Social Determinants of Health Will the patient participate in the screening: Yes Do you worry about a steady place to live?: No Do you have any problems with any of the following?: No known problems In the past 12 months,have you had to go without utilities?: No Have you or anyone in your house had to go without enough: No Transportation Issues: No Has anyone in your support network made you feel unsafe?: No Does the patient want assistance with any of the above?: No - Physical Exam Vital Signs: Vital Signs - 24 hr Temp Pulse Resp BP BP Pulse Ox 08/01/24 21:47 98.3 F 89 18 130/92 98 08/01/24 20:30 130/83 08/01/24 20:00 89 18 131/84 96 08/01/24 19:30 122/74 99 08/01/24 19:00 87 16 127/72 98 08/01/24 18:00 141/91 97 08/01/24 17:32 153/100 98 08/01/24 17:30 99.2 F 105 H 153/100 100 Additional Findings: 08/01/24 22:18 HEENT Young aged, average built in no distress NECK Supple,no thyromegaly, CVS S1+S2 + 0, no murmers RESP Bilateral equal air entry without Crepts/Wheezes heard GIT Soft non tender,non distended Skin, No rah, no Bruises LEGS No Edema PSYCH Normal,mood, judgement and insight NEURO AOX3, no focal deficit Results - Labs Lab/Micro Results: Lab Results-Last 24 Hours 08/01/24 08/01/24 08/01/24 Range/Units 17:49 18:00 18:00 WBC 21.2 H (4.23-9.07) x10^3/uL RBC 5.15 (4.63-6.08) x10^6/uL Hgb 15.3 (13.7-17.5) g/dL Hct 45.1 (40.1-51.0) % MCV 87.6 (79.0-92.2) fL MCH 29.7 (25.7-32.2) pg MCHC 33.9 (32.3-36.5) g/dL RDW 12.4 (11.6-14.4) % Plt Count 498 H (163-337) x10^3/uL MPV 9.2 L (9.4-12.4) fL Gran % 79.0 H (34.0-67.9) % Immature Gran % (Auto) 0.5 H (0.001-0.429) % Nucleat RBC Rel Count 0.0 (0.00-0.2) % Eos # (Auto) 0.34 (0.04-0.54) x10^3/uL Immature Gran # (Auto) 0.10 H (0.001-0.031) x10^3u/L Absolute Lymphs (auto) 2.50 (1.32-3.57) x10^3/uL Absolute Monos (auto) 1.38 H (0.30-0.82) x10^3/uL Absolute Nucleated RBC 0.00 (0.00-0.012) x10^3u/L Lymphocytes % 11.8 L (21.8-53.1) % Monocytes % 6.5 (5.3-12.2) % Eosinophils % 1.6 (0.8-7.0) % Basophils % 0.6 (0.2-1.2) % Absolute Granulocytes 16.73 H (1.78-5.38) x10^3/uL Basophils # 0.12 H (0.01-0.08) x10^3/uL Sodium 141 (135-145) mmol/L Potassium 4.2 (3.5-5.1) mmol/L Chloride 103 (98-107) mmol/L Carbon Dioxide 28 (22-30) mmol/L Anion Gap 15.0 (5-15) MEQ/L BUN 13 (9-20) mg/dL Creatinine 1.30 H (0.66-1.25) mg/dL Estimated GFR 69.5 ML/MIN Glucose 133 H (74-106) mg/dL Calcium 10.2 (8.4-10.2) mg/dL Total Bilirubin 0.60 (0.2-1.3) mg/dL AST 27 (17-59) U/L ALT 22 (0-50) U/L Alkaline Phosphatase 70 (38-126) U/L Serum Total Protein 8.7 H (6.3-8.2) g/dL Albumin 5.0 (3.5-5.0) g/dL Amylase 115 H (30-110) U/L Lipase 168 (23-300) U/L Urine Color Yellow (Yellow) Urine Appearance Clear (Clear) Urine pH 7.5 (4.6-8.0) Ur Specific [place] 1.010 (1.005-1.030) Urine Protein Negative (Negative) Urine Glucose (UA) Negative (Negative) mg/dL Urine Ketones Negative (Negative) Urine Blood Negative (Negative) Urine Nitrite Negative (Negative) Urine Bilirubin Negative (Negative) Urine Urobilinogen 0.2 (0.2) mg/dL Ur Leukocyte Esterase Negative (Negative) U Hyaline Cast (Auto) NONE SEEN (0-2) /LPF Urine Microscopic RBC 0-2 (0-5) /HPF Urine Microscopic WBC 0-2 (0-5) /HPF Ur Epithelial Cells None Seen (None Seen) /HPF Urine Bacteria None Seen (None Seen) /HPF Urine Culture Reflexed NO (NO) - Radiology Impressions Radiology Exams & Impressions: Radiology Procedures Category Date Time Status ABDOMEN AND PELVIS W/0 CONTRAS [CT] Stat Exams 08/01/24 18:11 Taken - Other Procedures and Tests Respiratory Therapy 08/01/24 22:10 Smoking Cessation Education ONCE Assessment/Plan (1) Acute diverticulitis Current Visit: Yes Status: Acute Code(s): K57.92 - DVTRCLI OF INTEST, PART UNSP, W/O PERF OR ABSCESS W/O BLEED Telemedicine Encounter - Telemedicine Encounter Telemedicine Encounter: The entirety of this encounter was performed via Telemedicine This visit was performed using real-time audio and video connection between my location and thepatients locationwith the assistance of a surrogateat the patients location. Written or verbal consent was obtained from the patient/guardian to perform this visit [facility]. Any patient questions regarding the telemedicine interaction were answered. Sepsis present upon admission patient was tachycardic, high white cell count, Source seem diverticulitis Received initial fluid bolus protocol in ER Continue antibiotics Keep following up cultures Acute uncomplicated sigmoid diverticulitis Continue levofloxacin and Flagyl Continued medicine Dilaudid 1 mg every 3 hours as needed Keep him on clear liquid diet for now Continue hydration Leukocytosis Seems due to underlying diverticulitis Will follow blood cultures Will r/o C diff as pt reporting diarrhea as well Diarrhea Check for C diff Supportive therapt with fluids Hyperlipidemia Resume home medicines Anxiety Continue home Effexor Active tobacco smoker Offered nicotine patch DVT prophylaxis SCD only CODE STATUS full Discharge planning pending clinical stability. I have reviewed patient vitals and imaging in detail question and concerns were addressed
[2024-08-01] MEDS: Nicoderm CQ 21 MG TOP SCH (23:17)
[2024-08-01] MEDS: Lactated Ringers 1,000 ML IV SCH (23:17)
[2024-08-01] MEDS: Effexor XR 75 MG PO SCH (23:18)
[2024-08-01] MEDS: Hydromorphone 1 mg/ml Injection IV PRN (23:18)
[2024-08-02 04:36] LABS: Hematocrit 40.7 % (40.1-51.0); Hemoglobin 13.8 g/dL (13.7-17.5); Mean Cell Volume 87.9 fL (79.0-92.2); Mean Corpuscular Hemoglobin 29.8 pg (25.7-32.2); Mean Corpuscular Hgb Concent. 33.9 g/dL (32.3-36.5); Mean Platelet Volume 8.9 fL (9.4-12.4); Platelet Count 423 x10^3/uL (163-337); Red Blood Count 4.63 x10^6/uL (4.63-6.08); Red Cell Distribution Width 12.6 % (11.6-14.4); White Blood Count 16.7 x10^3/uL (4.23-9.07)
[2024-08-02] MEDS: Hydromorphone 1 mg/ml Injection IV ONE (05:07)
[2024-08-02 05:10] LABS: ANION GAP 9.6 MEQ/L (5-15); Calcium 9.3 mg/dL (8.4-10.2); Creatinine 1 1.12 mg/dL (0.66-1.25); EST GLOMERULAR FILTRATION RATE 83.1 ML/MIN
--- NOTE | 2024-08-02 05:34 | PCM.NOTE ---
Date and Time: 08/02/24 0525 Subjective Assessment: HPI: 43 years old very pleasant male with no significant past medical history except hyperlipidemia came to ER complaining of new onset of lower abdominal and that started this morning it was severe around 8 x 10 nonradiating associated with nausea but no vomiting. He denied having any fever. He did not having any prior history of colitis. He did complain of some diarrhea without bloody stool. The initial blood pressure was 150/100 pulse rate 105 temperature 99.2. As well as blood workup concern white cell count 21 point hemoglobin 10.3 platelets 198. Sodium 140 potassium 4 point chloride 103 bicarb 20 BUN [address] abdomen pelvis favoring mild uncomplicated sigmoid diverticulitis. 08/02/24: Met with patient and fiance at bedside. Patient endorses 9/10 bilateral lower quadrant infraumbilical abdominal pain as well as testicular pain. No radiation. No rebound tenderness or guarding. He also has complaints of dysuria and feels that he is retaining urine. No associated N/V/D. WBC is improving 16.7<21.2. Lactate WNL and procal at 0.143. 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 Plan for Bladder and testicular US. Continued abx. - Review of Systems Constitutional: No Symptoms Eyes: No Symptoms Ears, Nose, & Throat: No Symptoms Respiratory: No Symptoms Cardiac: No Symptoms Abdominal/Gastrointestinal: Abdominal Pain Genitourinary Symptoms: Dysuria, Testicle Pain Musculoskeletal: No Symptoms Skin: No Symptoms Neurological: No Symptoms Psychological: No Symptoms Endocrine: No Symptoms Hematologic/Lymphatic: No Symptoms Immunological/Allergic: No Symptoms Objective Exam General Appearance: no apparent distress Neurologic Exam: alert, oriented x 3, cooperative Skin Exam: normal color Eye Exam: PERRL Ears, Nose, Throat Exam: normal ENT inspection Neck Exam: normal inspection Respiratory Exam: normal breath sounds, lungs clear Cardiovascular Exam: regular rate/rhythm, normal heart sounds Gastrointestinal/Abdomen Exam: soft, normal bowel sounds, other (TTP to bilateral lower abdominal quadrants infraumbilical) Extremity Exam: normal inspection Back Exam: normal inspection Male Genitalia Exam: normal genitalia, testicular tenderness Rectal Exam: deferred Objective Data Vital Signs: Vital Signs - 24 hr Temp Pulse Resp BP BP Pulse Ox 08/02/24 03:44 98.1 F 85 17 136/79 96 08/02/24 00:00 98.3 F 90 18 130/83 96 08/01/24 22:54 95 08/01/24 21:47 98.3 F 89 18 130/92 98 08/01/24 20:30 130/83 08/01/24 20:00 89 18 131/84 96 08/01/24 19:30 122/74 99 08/01/24 19:00 87 16 127/72 98 08/01/24 18:00 141/91 97 08/01/24 17:32 153/100 98 08/01/24 17:30 99.2 F 105 H 153/100 100 Pain Assessment - Last Documented Pain Intensity 9 Pain Scale Used 0-10 Pain Scale Intake and Output: Intake & Output 07/30/24 07/31/24 08/01/24 08/02/24 11:59 11:59 11:59 11:59 Intake Total 1517 Balance 1517 Weight 88.4 kg Lab Results: Lab Results-Last 24 Hours 08/01/24 08/01/24 08/01/24 Range/Units 17:49 18:00 18:00 WBC 21.2 H (4.23-9.07) x10^3/uL RBC 5.15 (4.63-6.08) x10^6/uL Hgb 15.3 (13.7-17.5) g/dL Hct 45.1 (40.1-51.0) % MCV 87.6 (79.0-92.2) fL MCH 29.7 (25.7-32.2) pg MCHC 33.9 (32.3-36.5) g/dL RDW 12.4 (11.6-14.4) % Plt Count 498 H (163-337) x10^3/uL MPV 9.2 L (9.4-12.4) fL Gran % 79.0 H (34.0-67.9) % Immature Gran % (Auto) 0.5 H (0.001-0.429) % Nucleat RBC Rel Count 0.0 (0.00-0.2) % Eos # (Auto) 0.34 (0.04-0.54) x10^3/uL Immature Gran # (Auto) 0.10 H (0.001-0.031) x10^3u/L Absolute Lymphs (auto) 2.50 (1.32-3.57) x10^3/uL Absolute Monos (auto) 1.38 H (0.30-0.82) x10^3/uL Absolute Nucleated RBC 0.00 (0.00-0.012) x10^3u/L Lymphocytes % 11.8 L (21.8-53.1) % Monocytes % 6.5 (5.3-12.2) % Eosinophils % 1.6 (0.8-7.0) % Basophils % 0.6 (0.2-1.2) % Absolute Granulocytes 16.73 H (1.78-5.38) x10^3/uL Basophils # 0.12 H (0.01-0.08) x10^3/uL Sodium 141 (135-145) mmol/L Potassium 4.2 (3.5-5.1) mmol/L Chloride 103 (98-107) mmol/L Carbon Dioxide 28 (22-30) mmol/L Anion Gap 15.0 (5-15) MEQ/L BUN 13 (9-20) mg/dL Creatinine 1.30 H (0.66-1.25) mg/dL Estimated GFR 69.5 ML/MIN Glucose 133 H (74-106) mg/dL Calcium 10.2 (8.4-10.2) mg/dL Total Bilirubin 0.60 (0.2-1.3) mg/dL AST 27 (17-59) U/L ALT 22 (0-50) U/L Alkaline Phosphatase 70 (38-126) U/L Serum Total Protein 8.7 H (6.3-8.2) g/dL Albumin 5.0 (3.5-5.0) g/dL Amylase 115 H (30-110) U/L Lipase 168 (23-300) U/L Urine Color Yellow (Yellow) Urine Appearance Clear (Clear) Urine pH 7.5 (4.6-8.0) Ur Specific [place] 1.010 (1.005-1.030) Urine Protein Negative (Negative) Urine Glucose (UA) Negative (Negative) mg/dL Urine Ketones Negative (Negative) Urine Blood Negative (Negative) Urine Nitrite Negative (Negative) Urine Bilirubin Negative (Negative) Urine Urobilinogen 0.2 (0.2) mg/dL Ur Leukocyte Esterase Negative (Negative) U Hyaline Cast (Auto) NONE SEEN (0-2) /LPF Urine Microscopic RBC 0-2 (0-5) /HPF Urine Microscopic WBC 0-2 (0-5) /HPF Ur Epithelial Cells None Seen (None Seen) /HPF Urine Bacteria None Seen (None Seen) /HPF Urine Culture Reflexed NO (NO) 08/02/24 Range/Units 04:25 WBC 16.7 H (4.23-9.07) x10^3/uL RBC 4.63 (4.63-6.08) x10^6/uL Hgb 13.8 (13.7-17.5) g/dL Hct 40.7 (40.1-51.0) % MCV 87.9 (79.0-92.2) fL MCH 29.8 (25.7-32.2) pg MCHC 33.9 (32.3-36.5) g/dL RDW 12.6 (11.6-14.4) % Plt Count 423 H (163-337) x10^3/uL MPV 8.9 L (9.4-12.4) fL Gran % (34.0-67.9) % Immature Gran % (Auto) (0.001-0.429) % Nucleat RBC Rel Count (0.00-0.2) % Eos # (Auto) (0.04-0.54) x10^3/uL Immature Gran # (Auto) (0.001-0.031) x10^3u/L Absolute Lymphs (auto) (1.32-3.57) x10^3/uL Absolute Monos (auto) (0.30-0.82) x10^3/uL Absolute Nucleated RBC (0.00-0.012) x10^3u/L Lymphocytes % (21.8-53.1) % Monocytes % (5.3-12.2) % Eosinophils % (0.8-7.0) % Basophils % (0.2-1.2) % Absolute Granulocytes (1.78-5.38) x10^3/uL Basophils # (0.01-0.08) x10^3/uL Sodium (135-145) mmol/L Potassium (3.5-5.1) mmol/L Chloride (98-107) mmol/L Carbon Dioxide (22-30) mmol/L Anion Gap (5-15) MEQ/L BUN (9-20) mg/dL Creatinine (0.66-1.25) mg/dL Estimated GFR ML/MIN Glucose (74-106) mg/dL Calcium (8.4-10.2) mg/dL Total Bilirubin (0.2-1.3) mg/dL AST (17-59) U/L ALT (0-50) U/L Alkaline Phosphatase (38-126) U/L Serum Total Protein (6.3-8.2) g/dL Albumin (3.5-5.0) g/dL Amylase (30-110) U/L Lipase (23-300) U/L Urine Color (Yellow) Urine Appearance (Clear) Urine pH (4.6-8.0) Ur Specific [place] (1.005-1.030) Urine Protein (Negative) Urine Glucose (UA) (Negative) mg/dL Urine Ketones (Negative) Urine Blood (Negative) Urine Nitrite (Negative) Urine Bilirubin (Negative) Urine Urobilinogen (0.2) mg/dL Ur Leukocyte Esterase (Negative) U Hyaline Cast (Auto) (0-2) /LPF Urine Microscopic RBC (0-5) /HPF Urine Microscopic WBC (0-5) /HPF Ur Epithelial Cells (None Seen) /HPF Urine Bacteria (None Seen) /HPF Urine Culture Reflexed (NO) Radiology Exams: Radiology Procedures Category Date Time Status ABDOMEN AND PELVIS W/0 CONTRAS [CT] Stat Exams 08/01/24 18:11 Taken Assessment/Plan (1) Sepsis Current Visit: Yes Status: Acute Assessment & Plan: -Criteria met with elevated WBC, tachycardia, and source of diverticulitis - as seen on CT -Received 1L fluid bolus in ED -Continue Flagyl/Levaquin -lactic WNL -procal elevated -blood cultures -pending -WBC 16.7<21.2 - trend -UA negative -Strict I & O (2) Acute diverticulitis Current Visit: Yes Status: Acute Assessment & Plan: -continue levaquin/flagyl -supportive therapies including pain control, anti-emetics, and anti-pyretics -CLD- ADAT -IVF Code(s): K57.92 - DVTRCLI OF INTEST, PART UNSP, W/O PERF OR ABSCESS W/O BLEED (3) Leucocytosis Current Visit: Yes Status: Acute Assessment & Plan: -see sepsis Code(s): D72.829 - ELEVATED WHITE BLOOD CELL COUNT, UNSPECIFIED (4) Diarrhea Current Visit: Yes Status: Acute Assessment & Plan: -check for cdiff - if negative immodium/hydration 08/02: -last BM yesterday Code(s): R19.7 - DIARRHEA, UNSPECIFIED (5) HLD (hyperlipidemia) Current Visit: Yes Status: Acute Assessment & Plan: -continue statin Code(s): E78.5 - HYPERLIPIDEMIA, UNSPECIFIED (6) Anxiety Current Visit: Yes Status: Acute Assessment & Plan: -Continue home Effexor Code(s): F41.9 - ANXIETY DISORDER, UNSPECIFIED (7) Smoker Current Visit: Yes Status: Acute Assessment & Plan: -advised cessation - nicotine patch DVT prophylaxis SCD only Dispo: 1-2 days CODE STATUS full Code(s): F17.200 - NICOTINE DEPENDENCE, UNSPECIFIED, UNCOMPLICATED (8) Testicle tenderness Current Visit: Yes Status: Acute Assessment & Plan: -US of testicles -No swelling/mass on exam Code(s): N50.819 - TESTICULAR PAIN, UNSPECIFIED (9) Dysuria Current Visit: Yes Status: Acute Assessment & Plan: -UA normal on admission - repeat -Bladder US -PVR -Noted, h/o 2inch of bladder removed 2/2 to gangrene appendicitis Code(s): R30.0 - DYSURIA
[2024-08-02] MEDS: FLAGYL 500 MG IVPB 500 MG/100 ML BAG IV SCH (06:13)
[2024-08-02] MEDS ORDERED: MEDICATION INTERVENTION MC SCH (08:00)
[2024-08-02] MEDS: NORCO 5/325 MG PO PRN (08:25)
--- NOTE | 2024-08-02 08:37 | XRAY ---
Indication: Bilateral lower quadrant pain. Diarrhea. Multiple contiguous axial images obtained through the abdomen and pelvis without contrast. Comparison: None Lung bases clear. Heart not enlarged. Noncontrasted stomach and bowel loops appear nonobstructed. Minimal sigmoid diverticulosis. Mid sigmoid demonstrates mild segmental wall thickening with minimal pericolonic stranding favoring diverticulitis. Previous appendectomy reported. No free fluid/air. Remaining liver, gallbladder, pancreas, spleen, adrenal glands, kidneys, ureters, bladder, and aorta are unremarkable for noncontrast exam. Osseous structures intact. No ventral or inguinal hernias. Impression: CT findings favoring mild uncomplicated sigmoid diverticulitis.
[2024-08-02] MEDS: Zocor 10MG PO SCH ×2 (09:41→21:11)
[2024-08-02] MEDS: Tricor 145 MG PO SCH ×2 (09:41→21:11)
[2024-08-02] MEDS ORDERED: NON-FORMULARY ITEM (Icosapent Ethyl [Vascepa] 1 GM Capsule) PO SCH (10:00)
[2024-08-02] MEDS ORDERED: NON-FORMULARY ITEM (Atorvastatin Calcium 10 MG Tablet) PO SCH (10:00)
[2024-08-02] MEDS: LEVOFLOXACIN 750MG/150ML D5W 750 MG/150 ML BAG IV SCH (10:20)
--- NOTE | 2024-08-02 12:36 | XRAY ---
Indication: Scrotal/pelvic pain. Two-dimensional targeted ultrasound urinary bladder performed. Comparison: None Urinary bladder is normally distended and grossly unremarkable. Normal bilateral ureteral jets. Prevoid volume is 218 cc. Postvoid is 87 cc. Impression: Small postvoid residual. Remaining urinary bladder sonogram is negative.
--- NOTE | 2024-08-02 12:38 | XRAY ---
Indication: Testicular pain. Two-dimensional testicular sonogram performed. Comparison: None Right testicle measures 3.7 x 2.0 x 2.6 cm and left measures 2.5 x 1.8 x 2.7 cm. Both testicles are homogeneous in echogenicity and demonstrates normal color Doppler flow. Tiny 2 mm left epididymal cyst. Right epididymis unremarkable. Tiny nonspecific bilateral hydroceles. No suspicious extratesticular mass. Impression: Tiny left epididymal cyst and tiny nonspecific bilateral hydroceles. Remaining testicular sonogram is negative.
[2024-08-02 13:31] LABS: Appearance Clear (Clear); Bacteria None Seen /HPF (None Seen); Bilirubin Negative (Negative); Blood Negative (Negative); Epithelial Cells None Seen /HPF (None Seen); Glucose, Urine Negative (Negative); Hyaline Casts NONE SEEN /LPF (0-2); Ketones Negative (Negative); Leukocyte Esterase Negative (Negative); Nitrite Negative (Negative); Ph 7.5 (4.6-8.0); Protein,Urine Dip Negative (Negative); RBC 0-2 /HPF (0-5); Specific Gravity <=1.005 (1.005-1.030); WBC 0-2 /HPF (0-5)
[2024-08-02 15:31] LABS: CHLAMYDIA DNA NOT DETECTED (NEGATIVE); GC DNA Probe NOT DETECTED (NEGATIVE)
[2024-08-02] MEDS: Nicoderm CQ 21 MG TOP SCH (20:07)
[2024-08-02] MEDS: Effexor XR 75 MG PO SCH (21:11)
[2024-08-03] MEDS ORDERED: Miralax Powder 17GM PACKET PO PRN (00:13)
[2024-08-03] MEDS: Hydromorphone 1 mg/ml Injection IV PRN (03:46)
[2024-08-03 04:35] LABS: Hematocrit 40.4 % (40.1-51.0); Hemoglobin 13.7 g/dL (13.7-17.5); Mean Cell Volume 87.6 fL (79.0-92.2); Mean Corpuscular Hemoglobin 29.7 pg (25.7-32.2); Mean Corpuscular Hgb Concent. 33.9 g/dL (32.3-36.5); Mean Platelet Volume 8.8 fL (9.4-12.4); Platelet Count 390 x10^3/uL (163-337); Red Blood Count 4.61 x10^6/uL (4.63-6.08); Red Cell Distribution Width 12.4 % (11.6-14.4); White Blood Count 11.1 x10^3/uL (4.23-9.07)
[2024-08-03 05:01] LABS: ALBUMIN 4.2 g/dL (3.5-5.0); ANION GAP 12.9 MEQ/L (5-15); BILIRUBIN,TOTAL 0.6 mg/dL (0.2-1.3); Calcium 9.5 mg/dL (8.4-10.2); Creatinine 1 1.16 mg/dL (0.66-1.25); EST GLOMERULAR FILTRATION RATE 79.7 ML/MIN; Total Protein 7.3 g/dL (6.3-8.2)
--- NOTE | 2024-08-03 05:09 | PCM.NOTE ---
Date and Time: 08/03/24 0508 Subjective Assessment: HPI: 43 years old very pleasant male with no significant past medical history except hyperlipidemia came to ER complaining of new onset of lower abdominal and that started this morning it was severe around 8 x 10 nonradiating associated with nausea but no vomiting. He denied having any fever. He did not having any prior history of colitis. He did complain of some diarrhea without bloody stool. The initial blood pressure was 150/100 pulse rate 105 temperature 99.2. As well as blood workup concern white cell count 21 point hemoglobin 10.3 platelets 198. Sodium 140 potassium 4 point chloride 103 bicarb 20 BUN [address] abdomen pelvis favoring mild uncomplicated sigmoid diverticulitis. 08/02/24: Met with patient and fiance at bedside. Patient endorses 9/10 bilateral lower quadrant infraumbilical abdominal pain as well as testicular pain. No radiation. No rebound tenderness or guarding. He also has complaints of dysuria and feels that he is retaining urine. No associated N/V/D. WBC is improving 16.7<21.2. Lactate WNL and procal at 0.143. 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 Plan for Bladder and testicular US. Continued abx. Objective Data Vital Signs: Vital Signs - 24 hr Temp Pulse Resp BP Pulse Ox 08/03/24 04:00 97.4 F 66 17 118/74 95 08/03/24 00:00 97.8 F 74 16 119/7 97 08/02/24 20:00 98.1 F 78 16 123/68 97 08/02/24 16:00 97.7 F 96 H 16 126/75 97 08/02/24 12:00 97.5 F 80 18 131/63 93 L 08/02/24 07:32 96.9 F 77 18 134/71 99 Pain Assessment - Last Documented Pain Intensity 0 Pain Scale Used 0-10 Pain Scale Intake and Output: Intake & Output 07/31/24 08/01/24 08/02/24 08/03/24 11:59 11:59 11:59 11:59 Intake Total 1637 2877 Output Total 1325 1200 Balance 312 1677 Weight 88.4 kg Lab Results: Lab Results-Last 24 Hours 08/02/24 08/02/24 08/02/24 Range/Units 04:25 04:25 09:21 WBC (4.23-9.07) x10^3/uL RBC (4.63-6.08) x10^6/uL Hgb (13.7-17.5) g/dL Hct (40.1-51.0) % MCV (79.0-92.2) fL MCH (25.7-32.2) pg MCHC (32.3-36.5) g/dL RDW (11.6-14.4) % Plt Count (163-337) x10^3/uL MPV (9.4-12.4) fL Sodium 136 (135-145) mmol/L Potassium 4.0 (3.5-5.1) mmol/L Chloride 105 (98-107) mmol/L Carbon Dioxide 26 (22-30) mmol/L Anion Gap 9.6 (5-15) MEQ/L BUN 12 (9-20) mg/dL Creatinine 1.12 (0.66-1.25) mg/dL Estimated GFR 83.1 ML/MIN Glucose 108 H (74-106) mg/dL Lactic Acid 1.6 (0.4-2.0) Calcium 9.3 (8.4-10.2) mg/dL Procalcitonin 0.143 H (0.030-0.080) ng/mL Urine Color (Yellow) Urine Appearance (Clear) Urine pH (4.6-8.0) Ur Specific [place] (1.005-1.030) Urine Protein (Negative) Urine Glucose (UA) (Negative) mg/dL Urine Ketones (Negative) Urine Blood (Negative) Urine Nitrite (Negative) Urine Bilirubin (Negative) Urine Urobilinogen (0.2) mg/dL Ur Leukocyte Esterase (Negative) U Hyaline Cast (Auto) (0-2) /LPF Urine Microscopic RBC (0-5) /HPF Urine Microscopic WBC (0-5) /HPF Ur Epithelial Cells (None Seen) /HPF Urine Bacteria (None Seen) /HPF Urine Culture Reflexed (NO) Chlamydia DNA Probe (NEGATIVE) N.gonorrhoeae DNA Probe (NEGATIVE) 08/02/24 08/02/24 08/03/24 Range/Units 13:23 Unknown 04:20 WBC 11.1 H (4.23-9.07) x10^3/uL RBC 4.61 L (4.63-6.08) x10^6/uL Hgb 13.7 (13.7-17.5) g/dL Hct 40.4 (40.1-51.0) % MCV 87.6 (79.0-92.2) fL MCH 29.7 (25.7-32.2) pg MCHC 33.9 (32.3-36.5) g/dL RDW 12.4 (11.6-14.4) % Plt Count 390 H (163-337) x10^3/uL MPV 8.8 L (9.4-12.4) fL Sodium (135-145) mmol/L Potassium (3.5-5.1) mmol/L Chloride (98-107) mmol/L Carbon Dioxide (22-30) mmol/L Anion Gap (5-15) MEQ/L BUN (9-20) mg/dL Creatinine (0.66-1.25) mg/dL Estimated GFR ML/MIN Glucose (74-106) mg/dL Lactic Acid (0.4-2.0) Calcium (8.4-10.2) mg/dL Procalcitonin (0.030-0.080) ng/mL Urine Color Yellow (Yellow) Urine Appearance Clear (Clear) Urine pH 7.5 (4.6-8.0) Ur Specific [place] <=1.005 (1.005-1.030) Urine Protein Negative (Negative) Urine Glucose (UA) Negative (Negative) mg/dL Urine Ketones Negative (Negative) Urine Blood Negative (Negative) Urine Nitrite Negative (Negative) Urine Bilirubin Negative (Negative) Urine Urobilinogen 1.0 A (0.2) mg/dL Ur Leukocyte Esterase Negative (Negative) U Hyaline Cast (Auto) NONE SEEN (0-2) /LPF Urine Microscopic RBC 0-2 (0-5) /HPF Urine Microscopic WBC 0-2 (0-5) /HPF Ur Epithelial Cells None Seen (None Seen) /HPF Urine Bacteria None Seen (None Seen) /HPF Urine Culture Reflexed NO (NO) Chlamydia DNA Probe NOT DETECTED (NEGATIVE) N.gonorrhoeae DNA Probe NOT DETECTED (NEGATIVE) Radiology Exams: Radiology Procedures Category Date Time Status ABDOMEN AND PELVIS W/0 CONTRAS [CT] Stat Exams 08/01/24 18:11 Completed BLADDER [US] Stat Exams 08/02/24 09:04 Completed TESTICLE [US] Stat Exams 08/02/24 09:04 Completed Assessment/Plan (1) Sepsis Current Visit: Yes Status: Acute Assessment & Plan: -Criteria met with elevated WBC, tachycardia, and source of diverticulitis - as seen on CT -Received 1L fluid bolus in ED -Continue Flagyl/Levaquin -lactic WNL -procal elevated -blood cultures -pending -WBC 16.7<21.2 - trend -UA negative -Strict I & O (2) Acute diverticulitis Current Visit: Yes Status: Acute Assessment & Plan: -continue levaquin/flagyl -supportive therapies including pain control, anti-emetics, and anti-pyretics -CLD- ADAT -IVF Code(s): K57.92 - DVTRCLI OF INTEST, PART UNSP, W/O PERF OR ABSCESS W/O BLEED (3) Leucocytosis Current Visit: Yes Status: Acute Assessment & Plan: -see sepsis Code(s): D72.829 - ELEVATED WHITE BLOOD CELL COUNT, UNSPECIFIED (4) Diarrhea Current Visit: Yes Status: Acute Assessment & Plan: -check for cdiff - if negative immodium/hydration 08/02: -last BM yesterday Code(s): R19.7 - DIARRHEA, UNSPECIFIED (5) HLD (hyperlipidemia) Current Visit: Yes Status: Acute Assessment & Plan: -continue statin Code(s): E78.5 - HYPERLIPIDEMIA, UNSPECIFIED (6) Anxiety Current Visit: Yes Status: Acute Assessment & Plan: -Continue home Effexor Code(s): F41.9 - ANXIETY DISORDER, UNSPECIFIED (7) Smoker Current Visit: Yes Status: Acute Assessment & Plan: -advised cessation - nicotine patch DVT prophylaxis SCD only Dispo: 1-2 days CODE STATUS full (2) Acute diverticulitis Current Visit: Yes Status: Acute Code(s): K57.92 - DVTRCLI OF INTEST, PART UNSP, W/O PERF OR ABSCESS W/O BLEED (3) Leucocytosis Current Visit: Yes Status: Acute Code(s): D72.829 - ELEVATED WHITE BLOOD CELL COUNT, UNSPECIFIED (4) Diarrhea Current Visit: Yes Status: Acute Code(s): R19.7 - DIARRHEA, UNSPECIFIED (5) HLD (hyperlipidemia) Current Visit: Yes Status: Acute Code(s): E78.5 - HYPERLIPIDEMIA, UNSPECIFIED (6) Anxiety Current Visit: Yes Status: Acute Code(s): F41.9 - ANXIETY DISORDER, UNSPECIFIED (7) Smoker Current Visit: Yes Status: Acute Code(s): F17.200 - NICOTINE DEPENDENCE, UNSPECIFIED, UNCOMPLICATED (8) Testicle tenderness Current Visit: Yes Status: Acute Code(s): N50.819 - TESTICULAR PAIN, UNSPECIFIED (9) Dysuria Current Visit: Yes Status: Acute Code(s): R30.0 - DYSURIA
[2024-08-03 07:21] VITALS: RESP 18
--- NOTE | 2024-08-03 11:06 | PCM.DS ---
Discharge Summary Date of Admission: 08/01/24 21:11 Date of Discharge: 08/03/24 Admitting Physician: CASSIDY DUNN MD Primary Care Provider: LAURIE GUNDERSON Allergies Allergies venom-honey bee [bee venom (honey bee)] Allergy (Severe, Verified 08/01/24 17:40) Hives aspirin Adverse Reaction (Severe, Verified 08/01/24 17:40) Vomiting morphine Adverse Reaction (Severe, Verified 08/01/24 17:40) Vomiting Hospital Summary - Hospital Course Hospital Course: 43 years old very pleasant male with no significant past medical history except hyperlipidemia came to ER complaining of new onset of lower abdominal and that started this morning it was severe around 8 x 10 nonradiating associated with nausea but no vomiting. He denied having any fever. He did not having any prior history of colitis. He did complain of some diarrhea without bloody stool. The initial blood pressure was 150/100 pulse rate 105 temperature 99.2. As well as blood workup concern white cell count 21 point hemoglobin 10.3 platelets 198. Sodium 140 potassium 4 point chloride 103 bicarb 20 BUN [address] abdomen pelvis favoring mild uncomplicated sigmoid diverticulitis. Patient admitted with diverticulitis. CT shows only mild diverticulitis. However, WBC initially quite high with severe pain disproportionate to CT findings. He endorsed having problems voiding. US of bladder and testicles ordered which were unremarkable. IP treament with zosyn/flagyl. Patient reporting much improved pain mostly in the LLQ. No longer with testicle pain or dysuria. No N/V/D. Labs and vitals stable. Patient is tolerating a diet. He is requesting discharge today. Discussed the importance of follow up with his PCP -may need colonoscopy as OP once infection is clear. Will discharge with cipro/flagyl. Discharge Note New Diagnosis: Diverticulitis New Medications: Cipro/flagyl/[place] Follow Up: PCP Results pending: Blood cultures Latest Assessment & Plan (1) Sepsis Current Visit: Yes Status: Acute Assessment & Plan: -Criteria met with elevated WBC, tachycardia, and source of diverticulitis - as seen on CT -Received 1L fluid bolus in ED -Continue Flagyl/Levaquin -lactic WNL -procal elevated -blood cultures -pending -WBC 16.7<21.2 - trend -UA negative -Strict I & O 08/03: -No longer meeting criteria -Requesting discharge - abd pain manageable, no N/V/D - tolerating diet -WBC at 11.7 - (2) Acute diverticulitis Current Visit: Yes Status: Acute Assessment & Plan: -continue levaquin/flagyl -supportive therapies including pain control, anti-emetics, and anti-pyretics -CLD- ADAT -IVF 08/03: -Discharge with cipro/flagyl - advised pcp follow up - may need colonoscopy as OP when infection clears Code(s): K57.92 - DVTRCLI OF INTEST, PART UNSP, W/O PERF OR ABSCESS W/O BLEED (3) Leucocytosis Current Visit: Yes Status: Acute Assessment & Plan: -see sepsis Code(s): D72.829 - ELEVATED WHITE BLOOD CELL COUNT, UNSPECIFIED (4) Diarrhea Current Visit: Yes Status: Acute Assessment & Plan: -check for cdiff - if negative immodium/hydration 08/02: -last BM yesterday 08/03: -resolved Code(s): R19.7 - DIARRHEA, UNSPECIFIED (5) HLD (hyperlipidemia) Current Visit: Yes Status: Acute Assessment & Plan: -continue statin Code(s): E78.5 - HYPERLIPIDEMIA, UNSPECIFIED (6) Anxiety Current Visit: Yes Status: Acute Assessment & Plan: -Continue home Effexor Code(s): F41.9 - ANXIETY DISORDER, UNSPECIFIED (7) Smoker Current Visit: Yes Status: Acute Assessment & Plan: -advised cessation - nicotine patch I spent 35 minutes [id number] with the patient on the day of discharge performing discharge exam, discussing hospital stay and discharge instructions with patient and caregivers, preparation of discharge records, prescriptions & referral forms and addressing any questions/concerns the patient had as documented above. - Vitals & Intake/Output Vital Signs: Vital Signs Temperature 97.1 F 08/03/24 07:17 Pulse Rate 68 08/03/24 07:17 Respiratory Rate 18 08/03/24 07:17 Blood Pressure 118/74 08/03/24 04:00 O2 Sat by Pulse Oximetry 98 08/03/24 07:17 Intake & Output: Intake & Output 07/31/24 08/01/24 08/02/24 08/03/24 11:59 11:59 11:59 11:59 Intake Total 1637 3907 Output Total 1325 1200 Balance 312 2707 Weight 88.4 kg - Lab Result Diagrams: 08/03/24 04:20 08/03/24 04:20 Lab Results-Last 24 Hrs: Lab Results-Last 24 Hours 08/02/24 08/02/24 08/03/24 Range/Units 13:23 Unknown 04:20 WBC 11.1 H (4.23-9.07) x10^3/uL RBC 4.61 L (4.63-6.08) x10^6/uL Hgb 13.7 (13.7-17.5) g/dL Hct 40.4 (40.1-51.0) % MCV 87.6 (79.0-92.2) fL MCH 29.7 (25.7-32.2) pg MCHC 33.9 (32.3-36.5) g/dL RDW 12.4 (11.6-14.4) % Plt Count 390 H (163-337) x10^3/uL MPV 8.8 L (9.4-12.4) fL Sodium (135-145) mmol/L Potassium (3.5-5.1) mmol/L Chloride (98-107) mmol/L Carbon Dioxide (22-30) mmol/L Anion Gap (5-15) MEQ/L BUN (9-20) mg/dL Creatinine (0.66-1.25) mg/dL Estimated GFR ML/MIN Glucose (74-106) mg/dL Calcium (8.4-10.2) mg/dL Total Bilirubin (0.2-1.3) mg/dL AST (17-59) U/L ALT (0-50) U/L Alkaline Phosphatase (38-126) U/L Serum Total Protein (6.3-8.2) g/dL Albumin (3.5-5.0) g/dL Urine Color Yellow (Yellow) Urine Appearance Clear (Clear) Urine pH 7.5 (4.6-8.0) Ur Specific [place] <=1.005 (1.005-1.030) Urine Protein Negative (Negative) Urine Glucose (UA) Negative (Negative) mg/dL Urine Ketones Negative (Negative) Urine Blood Negative (Negative) Urine Nitrite Negative (Negative) Urine Bilirubin Negative (Negative) Urine Urobilinogen 1.0 A (0.2) mg/dL Ur Leukocyte Esterase Negative (Negative) U Hyaline Cast (Auto) NONE SEEN (0-2) /LPF Urine Microscopic RBC 0-2 (0-5) /HPF Urine Microscopic WBC 0-2 (0-5) /HPF Ur Epithelial Cells None Seen (None Seen) /HPF Urine Bacteria None Seen (None Seen) /HPF Urine Culture Reflexed NO (NO) Chlamydia DNA Probe NOT DETECTED (NEGATIVE) N.gonorrhoeae DNA Probe NOT DETECTED (NEGATIVE) 08/03/24 Range/Units 04:20 WBC (4.23-9.07) x10^3/uL RBC (4.63-6.08) x10^6/uL Hgb (13.7-17.5) g/dL Hct (40.1-51.0) % MCV (79.0-92.2) fL MCH (25.7-32.2) pg MCHC (32.3-36.5) g/dL RDW (11.6-14.4) % Plt Count (163-337) x10^3/uL MPV (9.4-12.4) fL Sodium 138 (135-145) mmol/L Potassium 4.0 (3.5-5.1) mmol/L Chloride 101 (98-107) mmol/L Carbon Dioxide 28 (22-30) mmol/L Anion Gap 12.9 (5-15) MEQ/L BUN 10 (9-20) mg/dL Creatinine 1.16 (0.66-1.25) mg/dL Estimated GFR 79.7 ML/MIN Glucose 117 H (74-106) mg/dL Calcium 9.5 (8.4-10.2) mg/dL Total Bilirubin 0.60 (0.2-1.3) mg/dL AST 25 (17-59) U/L ALT 19 (0-50) U/L Alkaline Phosphatase 62 (38-126) U/L Serum Total Protein 7.3 (6.3-8.2) g/dL Albumin 4.2 (3.5-5.0) g/dL Urine Color (Yellow) Urine Appearance (Clear) Urine pH (4.6-8.0) Ur Specific [place] (1.005-1.030) Urine Protein (Negative) Urine Glucose (UA) (Negative) mg/dL Urine Ketones (Negative) Urine Blood (Negative) Urine Nitrite (Negative) Urine Bilirubin (Negative) Urine Urobilinogen (0.2) mg/dL Ur Leukocyte Esterase (Negative) U Hyaline Cast (Auto) (0-2) /LPF Urine Microscopic RBC (0-5) /HPF Urine Microscopic WBC (0-5) /HPF Ur Epithelial Cells (None Seen) /HPF Urine Bacteria (None Seen) /HPF Urine Culture Reflexed (NO) Chlamydia DNA Probe (NEGATIVE) N.gonorrhoeae DNA Probe (NEGATIVE) - Radiology Exams Ordered Rad Exams-Entire Visit: Radiology Procedures Category Date Time Status ABDOMEN AND PELVIS W/0 CONTRAS [CT] Stat Exams 08/01/24 18:11 Completed BLADDER [US] Stat Exams 08/02/24 09:04 Completed TESTICLE [US] Stat Exams 08/02/24 09:04 Completed - Procedures and Test Procedures and Tests throughout Hospitalization: Therapy Orders & Screens 08/01/24 22:10 Smoking Cessation Education ONCE Comment: Diagnosis: Sigmoid diverticulitis, leukocytosis elevated serum creatinine, thrombocyto Smoking Status: Current some day smoker How long have you smoked: 15 years Do you dip or chew tobacco: No Discharge Exam General Appearance: no apparent distress Neurologic Exam: alert, oriented x 3, cooperative Eye Exam: PERRL Ears, Nose, Throat Exam: normal ENT inspection Neck Exam: normal inspection Respiratory Exam: normal breath sounds, lungs clear Cardiovascular Exam: regular rate/rhythm, normal heart sounds Gastrointestinal/Abdomen Exam: soft, normal bowel sounds, tenderness (LLQ) Male Genitalia Exam: deferred Rectal Exam: deferred Back Exam: normal inspection Extremity Exam: normal inspection Skin Exam: normal color Final Diagnosis/Problem List - Final Discharge Diagnosis/Problem (1) Sepsis Current Visit: Yes Status: Resolved (2) Acute diverticulitis Current Visit: Yes Status: Acute Code(s): K57.92 - DVTRCLI OF INTEST, PART UNSP, W/O PERF OR ABSCESS W/O BLEED (3) Leucocytosis Current Visit: Yes Status: Acute Code(s): D72.829 - ELEVATED WHITE BLOOD CELL COUNT, UNSPECIFIED (4) Diarrhea Current Visit: Yes Status: Resolved Code(s): R19.7 - DIARRHEA, UNSPECIFIED (5) HLD (hyperlipidemia) Current Visit: Yes Status: Chronic Code(s): E78.5 - HYPERLIPIDEMIA, UNSPECIFIED (6) Anxiety Current Visit: Yes Status: Chronic Code(s): F41.9 - ANXIETY DISORDER, UNSPECIFIED (7) Smoker Current Visit: Yes Status: Chronic Code(s): F17.200 - NICOTINE DEPENDENCE, UNSPECIFIED, UNCOMPLICATED (8) Testicle tenderness Current Visit: Yes Status: Resolved Code(s): N50.819 - TESTICULAR PAIN, UNSPECIFIED (9) Dysuria Current Visit: Yes Status: Resolved Code(s): R30.0 - DYSURIA - Discharge Disposition: Home, Self-Care Condition: Stable Prescriptions: New Ciprofloxacin [Cipro 500 MG] 500 mg PO BID 7 Days #14 tablet Metronidazole 500 mg [Flagyl 500 MG] 500 mg PO TID 7 Days #21 tablet Continue Venlafaxine HCl ER 75 mg [Effexor XR 75 MG] 75 mg PO DAILY Fenofibrate,Micronized 145 mg* [Tricor 145 MG] 145 mg PO DAILY icosapent ethyL [Vascepa] 1 gm PO BID Discontinued Atorvastatin Calcium [Lipitor] 10 mg PO DAILY Additional Instructions: Hold atorvastatin while take Cipro/Flagyl - may resume 10 days following completion Follow up with: ALURIE GUNDERSON NP [Primary Care Provider] -
[2024-08-03 11:07] VITALS: BP 111/69; PULSE 76; TEMP 97.3; O2SAT 95
== END 2024-08-03 12:32 | disposition home or self-care (01) ==
LOC: ED 17:24 → MED SURG 21:11
PROVIDERS: ADMIT Internal Medicine; ATTEND Internal Medicine
DX: A41.9 Sepsis, unspecified organism (principal); K57.92 Diverticulitis of intestine, part unspecified, without perforation or abscess without bleeding; D72.829 Elevated white blood cell count, unspecified; R19.7 Diarrhea, unspecified; E78.5 Hyperlipidemia, unspecified; F41.9 Anxiety disorder, unspecified; F17.200 Nicotine dependence, unspecified, uncomplicated; N50.819 Testicular pain, unspecified; R30.0 Dysuria; Z79.899 Other long term (current) drug therapy
CPT/HCPCS: 36415; 74176; 76705; 76870; 80048; 80053; 81001; 82150; 83605; 83690; 84145; 85025; 85027; 87040; 87491; 87591; 96374; 96375; 99285; Q3014; G0378; J1170; J1956; J2405; J3010; A9270-GY